=== PATIENT | female | born 1990 | race Caucasian/White ===

== ENCOUNTER 2020-09-22 13:30 | Emergency (ER) | payer BC ==
[2020-09-22 13:44] VITALS: BP 107/62; PULSE 105; TEMP 100.8; BMI 27.3
[2020-09-22 14:14] LABS: BASO % 0.3 % (0-2.0); EOS % 0.3 % (0-4.5); HEMATOCRIT 36.9 % (32.4-45.2); HEMOGLOBIN 12.3 GM/dl (10.7-15.3); LYMPH % 12.6 % (8-40); MCH 27.6 pg (25.7-33.7); MCHC 33.2 g/dl (32.0-36.0); MEAN CELL VOLUME 83.1 fl (80-96); MEAN PLT VOLUME 9.1 fl (7.5-11.1); MONO % 7.6 % (3.8-10.2); NEUT % 79.2 % (42.8-82.8); PLATELET COUNT 193 K/MM3 (134-434); RBC 4.44 M/mm3 (3.60-5.2); RDW 12.8 % (11.6-15.6); WHITE BLOOD COUNT 10.9 K/mm3 (4.0-10.8)
[2020-09-22 14:25] LABS: EPITHELIAL CELLS FEW /hpf
[2020-09-22 14:51] LABS: BILIRUBIN,TOTAL 0.9 mg/dl (0.2-1); CALCIUM 8.9 mg/dl (8.5-10); CREATININE 0.8 mg/dl (0.55-1.3)
[2020-09-22] MEDS ORDERED: POTASSIUM CHLORIDE TABS 20 MEQ TABLET.ER (FP) PO ONE ×2 (15:26→15:34)
== END 2020-09-22 16:41 | disposition home or self-care (01) ==
LOC: FER 13:30
DX: R50.9 Fever, unspecified (principal)
CPT/HCPCS: 36415; 76700-TC; 76775-TC; 80053; 81003; 81015; 84703; 85025; 87086; 99284-25